=== PATIENT | male | born 1980 ===

== ENCOUNTER 2022-01-01 07:02 | Day surgery (SDC) | payer OTHER | END 2022-01-01 13:40 | disposition home or self-care (01) | LOC: CIR.AMB 07:02 | PROVIDERS: ATTEND Colon & Rectal Surgery | DX: D12.3 Benign neoplasm of transverse colon (principal); K64.4 Residual hemorrhoidal skin tags; I10 Essential (primary) hypertension; Z20.822 Contact with and (suspected) exposure to COVID-19 ==

== ENCOUNTER 2024-06-01 10:01 | Day surgery (SDC) | payer OTHER ==
[2024-06-01] MEDS ORDERED: ONDANSETRON HCL 2 MG/ML VIAL IV ONE (14:45)
[2024-06-01] MEDS ORDERED: MIDAZOLAM HCL 2 MG/2 ML VIAL IV ONE (14:45)
[2024-06-01] MEDS ORDERED: DIPHENHYDRAMINE HCL 50 MG/ML VIAL 1ML IV ONE ×2 (14:45)
[2024-06-01] MEDS ORDERED: fentaNYL CITRATE 50 MCG/ML AMPUL IV PUSH ONE (14:45)
== END 2024-06-01 16:25 | disposition home or self-care (01) ==
LOC: AMB-ENDOS 10:01
PROVIDERS: ATTEND Colon & Rectal Surgery
DX: D12.3 Benign neoplasm of transverse colon (principal); K63.5 Polyp of colon; K57.30 Diverticulosis of large intestine without perforation or abscess without bleeding